=== PATIENT | female | born 1985 | race Caucasian/White ===

== ENCOUNTER 2020-01-28 19:52 | Emergency (ER) | payer OTHER ==
[~2020-01-28] VITALS: Ht 157.5 cm; Wt 76.7 kg
== END 2020-01-28 23:33 | disposition home or self-care (01) ==
LOC: ER 19:52
DX: O20.8 Other hemorrhage in early pregnancy (principal); Z3A.08 8 weeks gestation of pregnancy

== ENCOUNTER 2020-08-25 17:37 | Emergency (ER) | payer OTHER ==
[~2020-08-25] VITALS: Ht 157.5 cm; Wt 77.1 kg
[2020-08-25] MEDS ORDERED: PRENATABS RX T1 EACH PO (18:19)
[2020-08-25] MEDS ORDERED: FOLIC ACID0.8 M1 PO (18:20)
[2020-08-25] MEDS ORDERED: ORTHO DF 3,7751 EACH PO (18:20)
== END 2020-08-25 21:01 | disposition home or self-care (01) ==
LOC: ER 17:37
DX: O20.0 Threatened abortion (principal)

== ENCOUNTER 2020-09-28 14:48 | Emergency (ER) | payer OTHER ==
[~2020-09-28] VITALS: Ht 157.5 cm; Wt 86.2 kg
[~2020-09-28 14:48] MED LIST: FOLIC ACID0.8 M1 PO; ORTHO DF 3,7751 EACH PO; PRENATABS RX T1 EACH PO
[2020-09-28] MEDS ORDERED: CLARITIN5 MG PO (19:44)
[2020-09-28] MEDS ORDERED: MUCINEX DM ER1 EACH PO (19:44)
[2020-09-28] MEDS ORDERED: LEVALBUTER0.63 MG/3 IH (19:51)
== END 2020-09-28 20:28 | disposition home or self-care (01) ==
LOC: ER 14:48
DX: J06.9 Acute upper respiratory infection, unspecified (principal); J30.89 Other allergic rhinitis; Z11.52 Encounter for screening for COVID-19

== ENCOUNTER 2021-03-16 07:45 | Inpatient (IN) | payer OTHER ==
[~2021-03-16] VITALS: Ht 157.5 cm; Wt 92.1 kg
[~2021-03-16 07:45] MED LIST changes: +CLARITIN5 MG PO; +LEVALBUTER0.63 MG/3 IH; +MUCINEX DM ER1 EACH PO
== END 2021-03-20 11:41 | disposition home or self-care (01) | DRG 785 ==
LOC: O/R 03-17 06:11 → OB/GYN 03-17 06:11 → LDR 03-17 07:00 → OB/GYN 03-17 18:46
PROVIDERS: ADMIT Obstetrics & Gynecology; ATTEND Obstetrics & Gynecology
PROC: 0UB70ZZ Excision of Bilateral Fallopian Tubes, Open Approach (ICD-10-PCS; 2021-03-17)
PROC: 4A1HXFZ Monitoring of Products of Conception, Cardiac Rhythm, External Approach (ICD-10-PCS; 2021-03-17)
PROC: 10D00Z1 Extraction of Products of Conception, Low, Open Approach (ICD-10-PCS; principal; 2021-03-17 07:00)
DX: O34.211 Maternal care for low transverse scar from previous cesarean delivery (principal); Z53.29 Procedure and treatment not carried out because of patient's decision for other reasons; Z30.2 Encounter for sterilization; Z37.0 Single live birth; Z3A.39 39 weeks gestation of pregnancy